=== PATIENT | male | born 1980 | race Caucasian/White ===

== ENCOUNTER 2020-12-10 19:02 | Emergency (ER) | payer OTHER ==
[2020-12-10 19:15] VITALS: BP 112/72; PULSE 84; TEMP 98; BMI 38.0
[2020-12-10] MEDS ORDERED: CLINDAMYCIN IVPB 300 MG in DEXTROSE 5%-WATER - 48 ML IVPB ONE (20:49)
[2020-12-10] MEDS ORDERED: CLINDAMYCIN 300 MG PREMIX IVPB 300 MG/50 ML BAG IVPB ONE (21:00)
[2020-12-10 21:44] LABS: BASO % 0.5 % (0-2.0); EOS % 2.4 % (0-4.5); HEMATOCRIT 44.7 % (35.4-49); HEMOGLOBIN 15.2 GM/dL (11.7-16.9); MCH 29.8 pg (25.7-33.7); MCHC 33.9 g/dl (32.0-35.9); MEAN CELL VOLUME 87.9 fl (80-96); MEAN PLT VOLUME 9.6 fl (7.5-11.1); MONO % 9.6 % (3.8-10.2); NEUT % 64.5 % (42.8-82.8); PLATELET COUNT 190 10^3/uL (134-434); RBC 5.09 M/mm3 (4.00-5.60); RDW 12.6 % (11.9-15.9)
[2020-12-10 21:54] LABS: CHLORIDE 104 mmol/L (98-107); SODIUM 141 mmol/L (136-145)
[2020-12-10 21:56] LABS: ALBUMIN 4.1 g/dl (3.4-5.0); ANION GAP 5 MMOL/L (8-16); BLOOD UREA NITROGEN 11.6 mg/dL (7-18); CALCIUM 9.3 mg/dL (8.5-10.1); CO2 31 mmol/L (21-32); GLUCOSE,RANDOM 199 mg/dL (74-106)
[2020-12-10 21:58] LABS: INR 1.04 (0.83-1.09); PROTHROMBIN TIME (PATIENT) 12.8 SEC (9.7-13.0)
[2020-12-10 21:59] LABS: SGOT/AST 18 U/L (15-37); SGPT/ALT 44 U/L (13-61)
[2020-12-10 22:00] LABS: ACTIVATED PTT 30.6 SECONDS (25.2-36.5)
[2020-12-10 22:01] LABS: BILIRUBIN,TOTAL 0.3 mg/dL (0.2-1); TOT PROT 7.8 g/dl (6.4-8.2)
[2020-12-10 22:02] LABS: ALK PHOS 54 U/L (45-117)
[2020-12-10] MEDS ORDERED: SILVER SULFADIAZINE 1% TOP CREAM 50 GM JAR TP ONE ×2 (23:16→23:18)
== END 2020-12-10 23:30 | disposition home or self-care (01) ==
LOC: JER 19:02
DX: T24.232A Burn of second degree of left lower leg, initial encounter (principal); X16.XXXA Contact with hot heating appliances, radiators and pipes, initial encounter
CPT/HCPCS: 36415; 80053; 84484; 85025; 85610; 85730; 93971-TC; 99284-25